=== PATIENT | male | born 1955 | race Caucasian/White ===

== ENCOUNTER 2016-10-18 14:54 | Outpatient (CLI) ==
[2016-04-23 18:36] VITALS: BMI 27.6
--- NOTE | 2016-10-18 15:26 | DI ---
EXAM: Chest two view, frontal and lateral views. HISTORY: Cough. COMPARISON: 08/23/2015. FINDINGS: The heart size is normal. There is no pulmonary vascular congestion. The lungs are hira r. No pleural effusion or pneumothorax is seen. No acute osseous abnormality identified. Since prior study, there has been no significant interval change. IMPRESSION: No acute cardiopulmonary process.
== END 2016-10-18 14:55 | disposition home or self-care (01) ==
LOC: RAD 14:54
PROVIDERS: ATTEND Nurse Practitioner Family
DX: R05 Cough (principal); R06.02 Shortness of breath

== ENCOUNTER 2016-10-19 15:28 | Emergency (ER) ==
[2016-10-19 15:35] VITALS: BP 117/74; TEMP 99.9; BMI 27.2
[2016-10-19] MEDS ORDERED: DUONEB NEB STA (15:44)
[2016-10-19] MEDS ORDERED: DECADRON 4 MG/ML SDV IM STA (15:44)
[2016-10-19] MEDS ORDERED: ZITHROMAX PO STA (15:45)
--- NOTE | 2016-10-19 15:47 | ED.PDOC ---
General ED Provider: Dr. ALDO MARIE Chief Complaint: Cough Stated Complaint: COUGH Time Seen by Physician: 15:30 Mode of Arrival: Walk-In Information Source: Patient Exam Limitations: No limitations Primary Care Provider: ROSIBEL ZAIDI Nursing and Triage Documentation Reviewed and Agree: Yes Respiratory Complaint Exam - Respiratory Complaint/Exam Onset/Duration: 3 DAYS Symptoms Are: Still present Timing: Intermittent Initial Severity: Moderate Current Severity: Moderate Location: Throat, Chest Character: Reports: Non-productive cough Aggravating: Reports: Weather Associated Signs and Symptoms: Denies: Rapid breathing, Dyspnea, Fever, Chills, Chest pain, Pleuritic chest pain, Wheezing, Hemoptysis, Dizziness, Calf pain, Calf swelling, Edema, URI, Nasal congestion, Hoarseness, Sinus discomfort, Vomiting, Sore throat, Weight loss, Decreased oral intake, Increased thirst, Increased appetite, Increased urination Related History: Reports: Similar episode History of Healthcare-Acquired Pneumonia: No Related Surgical History: Reports: None Pulmonary Embolism Risk Factors: Smoking Cardiac Risk Factors: Reports: Smoking Pseudomonas Risk Factors: Reports: None Tuberculosis Risk Factors: Reports: None Status Asthmaticus Risk Factors: Reports: None Home Oxygen Use: No Recent Stress Test: No Recent Echo/LV Function: No Current Antibiotic Use: No Current Asthma Medication Use: No Respiratory Distress: None Inadequate Respiratory Effort: No Dysphagia Present: No Stridor Present: No JVD Present: No Retractions: Not Present Diminished Breath Sounds: No Sinus Tenderness: None Grunting Respirations: No Kussmaul Respirations: No Differential Diagnoses: Pneumonia, Bronchitis Review of Systems - Review Of Systems Constitutional: Reports: No symptoms Eyes: Reports: No symptoms Ears, Nose, Mouth, Throat: Reports: No symptoms Respiratory: Reports: No symptoms Cardiac: Reports: No symptoms GI: Reports: No symptoms : Reports: No symptoms Musculoskeletal: Reports: No symptoms Skin: Reports: No symptoms Neurological: Reports: No symptoms Endocrine: Reports: No symptoms Hematologic/Lymphatic: Reports: No symptoms All Other Systems: Reviewed and Negative Past Medical History - Past Medical History Previously Healthy: No Endocrine: Reports: None Cardiovascular: Reports: None Respiratory: Reports: COPD Hematological: Reports: None Gastrointestinal: Reports: None Genitourinary: Reports: None Neuro/Psych: Reports: None Musculoskeletal: Reports: Joint Pain Cancer: Reports: None - Surgical History General Surgical History: Reports: None - Family History Family History: Reports: None - Social History Smoking Status: Current some day smoker Hx Substance Use: No Alcohol Screening: None Physical Exam - Physical Exam Appearance: Well-appearing, No pain distress, Well-nourished Eyes: CAROLYN, EOMI, Conjunctiva clear ENT: Ears normal, Nose normal, Oropharynx normal Respiratory: Airway patent, Breath sounds clear, Breath sounds equal, Respirations nonlabored Cardiovascular: RRR, Pulses normal, No rub, No murmur GI/: Soft, Nontender, No masses, Bowel sounds normal, No Organomegaly Musculoskeletal: Normal strength, ROM intact, No edema, No calf tenderness Skin: Warm, Dry, Normal color Neurological: Sensation intact, Motor intact, Reflexes intact, Cranial nerves intact, Alert, Oriented Psychiatric: Affect appropriate, Mood appropriate Critical Care Note - Critical Care Note Total Time (mins): 0 Course - Course Orders, Labs, Meds: Orders Category Date Time Status NEBULIZER TREATMENT Stat CARDIO 10/19/16 15:44 Ordered Azithromycin [Zithromax] MEDS 10/19/16 15:45 Stat 1,000 mg PO ONCE STA Dexamethasone 4 mg/ml Inj [Decadron 4 mg/ml Sdv] MEDS 10/19/16 15:44 Stat 8 mg IM ONCE STA Ipratropium/Albuterol Neb [Duoneb] MEDS 10/19/16 15:44 Stat 1 vial NEB ONCE STA Medications Generic Name Dose Route Start Last Admin Trade Name Freq PRN Reason Stop Dose Admin Azithromycin 1,000 mg 10/19/16 15:45 Zithromax PO 10/19/16 15:46 ONCE STA Discontinued Medications Generic Name Dose Route Start Last Admin Trade Name Freq PRN Reason Stop Dose Admin Albuterol/Ipratropium 1 vial 10/19/16 15:44 Duoneb NEB 10/19/16 15:45 ONCE STA Dexamethasone Sodium Phosphate 8 mg 10/19/16 15:44 Decadron 4 Mg/Ml Sdv IM 10/19/16 15:45 ONCE STA Vital Signs: Temp Pulse Resp BP Pulse Ox 10/19/16 15:29 99.9 F H 89 20 117/74 95 Departure - Departure Time of Disposition: 16:16 Disposition: HOME SELF-CARE Discharge Problem: Cough, COPD exacerbation, Bronchitis Instructions: Emphysema (ED), COPD (Chronic Obstructive Pulmonary Disease) (ED) , Chronic Bronchitis (ED), How Your Lungs Work (ED), How to Stop Smoking (ED) Condition: Good Pt referred to PMD for follow-up: No Additional Instructions: Please call your Family Physician as soon as possible to schedule a follow-up appointment. Prescriptions: Azithromycin [Zithromax] 250 mg PO DIRECTED #6 tablet Allergies/Adverse Reactions: Allergies codeine Allergy (Unknown, Verified 04/23/16 18:37) lidocaine Allergy (Unknown, Verified 04/23/16 18:37) Penicillins Allergy (Unknown, Verified 04/23/16 18:37) Home Medications: Ambulatory Orders Albuterol Sulfate [Proair Hfa] 2 puff IH Q4H PRN 10/19/16 Azithromycin [Zithromax] 250 mg PO DIRECTED #6 tablet 10/19/16 Ibuprofen 600 mg PO Q8H PRN 10/19/16 Ipratropium Galax [Atrovent Hfa] 2 puff IH QID 10/19/16 Oxycodone HCl [Oxycodone] 5 mg PO Q6H PRN 10/19/16
== END 2016-10-19 16:55 | disposition home or self-care (01) ==
LOC: ED 15:28
DX: J44.0 Chronic obstructive pulmonary disease with (acute) lower respiratory infection (principal); J20.9 Acute bronchitis, unspecified; J44.1 Chronic obstructive pulmonary disease with (acute) exacerbation; F17.210 Nicotine dependence, cigarettes, uncomplicated
CPT/HCPCS: 94640; 96372; 99283

== ENCOUNTER 2016-12-21 12:00 | Outpatient (CLI) | END 2016-12-21 12:01 | LOC: AMBL 12:00 | PROVIDERS: ATTEND Emergency Medicine | DX: R07.9 Chest pain, unspecified (principal); R51 Headache; M79.602 Pain in left arm; R53.1 Weakness ==

== ENCOUNTER 2017-02-14 15:33 | Outpatient (CLI) ==
[2017-02-15 05:48] LABS: FLU INTERNAL QC INTERNAL QC VALID; RAPID FLU A NEGATIVE (NEGATIVE); RAPID FLU B NEGATIVE (NEGATIVE)
== END 2017-02-14 15:34 | disposition home or self-care (01) ==
LOC: LAB 15:33
PROVIDERS: ATTEND Nurse Practitioner Family
DX: J02.9 Acute pharyngitis, unspecified (principal); R05 Cough; I10 Essential (primary) hypertension; Z72.0 Tobacco use
CPT/HCPCS: 87651; 87804; 87880